=== PATIENT | male | born 1990 | race Caucasian/White ===

== ENCOUNTER 2020-05-28 15:16 | Emergency (ER) | payer MEDICAID, SELFPAY ==
[2020-05-28 15:16] VITALS: BP 137/83; PULSE 94; RESP 16; TEMP 36.1; O2SAT 98
[2020-05-28 15:17] VITALS: BP 137/83; PULSE 94; RESP 16; TEMP 36.1; O2SAT 98; BMI 22.8
--- NOTE | 2020-05-28 15:27 | ED.VIS.GEN ---
History of Present Illness Chief Complaint: General Illness Informant: Patient Onset: Days Context: Gradual Onset Timing: Continuous Current Severity: Moderate Maximum Severity: Moderate Narrative: The patient is a 29-year-old male the presents to the emergency department multiple symptoms. Patient was recently hospitalized at [facility] due to psychiatric illness. While there, he was started on Trileptal. He states has been on it for 4 days. He states he felt nauseated and dizzy with taking it. Today, he began to have cough, nasal congestion, and some mild shortness of breath. He states he did have a negative Covid test 5 days ago. He does not think he had fever. He does admit to some chills. He states he is also been nauseated. He is never been on this medication before. He denies thoughts of self-harm or harming others. Prior similar symptoms: No Recent Illness/Hospitalization: Yes Past Medical History - Allergies and Home Meds Allergies/Adverse Reactions: Allergies amoxicillin [Amoxicillin] Allergy (Unknown, Verified 06/03/14 18:44) Unknown Penicillins Allergy (Unknown, Verified 06/03/14 18:44) Unknown haloperidol [From Haldol] Allergy (Verified 05/28/20 15:20) NEEDS FOLLOW-UP Latex, Natural Rubber Allergy (Verified 05/28/20 15:20) Rash Primary Care Physician: [facility] [GROUP OF PHYSICIANS] - Prior records reviewed: Yes Past Medical History: - - Bipolar disorder Surgical History: noncontributory Smoking Status: Current every day smoker - Family History Maternal Family History: Reports: No pertinent history Review of Systems General: Reports: Malaise. Denies: Chills, Fever, Sweats Eyes: Denies: Visual changes - bilaterally, Diplopia ENT: Denies: Rhinorrhea, Sore throat Cardiovascular: Denies: Chest pain, Palpitations Respiratory: Reports: Cough. Denies: Dyspnea, Dyspnea on exertion Gastrointestinal: Reports: Nausea. Denies: Abdominal pain, Vomiting, Diarrhea, Melena, Hematochezia Genitourinary: Denies: Dysuria, Hematuria, Frequency Musculoskeletal: Reports: Arthralgias. Denies: Back pain, Extremity Pain Skin: Denies: Rash, Wounds Neurological: Denies: Headache, Weakness, Numbness Physical Exam Vital Signs/Narrative: Vital Signs Temp Pulse Resp BP Pulse Ox 05/28/20 15:17 96.9 F L 94 16 137/83 H 98 05/28/20 15:16 96.9 F L 94 16 137/83 H 98 Inital Vital Signs reviewed: Yes General: Well nourished, Well developed, No Acute Distress Head: Normocephalic, Atraumatic Eyes: Perrl, EOMI ENT: Moist mucous membranes, No rhinorrhea Neck: Supple, Nontender Cardiovascular: Regular rate, Regular rhythm, No murmurs Respiratory: No distress, CTA bilaterally, Chest nontender Abdomen: Soft, Nontender, Nondistended, Normal bowel sounds Back: Nontender, Normal Inspection Extremities: Nontender, No edema Skin: Normal color, No rash Neurological: Alert, Oriented x3, Cranial nerves II-XII grossly intact, Normal Strength, Normal Sensation Psychological: Normal affect, Normal Mood Diagnostic/Tx/Re-eval Laboratory Last Values WBC 16.5 K/mm3 (4.4-11.0) H 05/28/20 15:49 RBC 5.59 M/mm3 (4.6-6.2) 05/28/20 15:49 Hgb 16.3 g/dL (13.0-16.5) 05/28/20 15:49 Hct 49.1 % (40-54) 05/28/20 15:49 MCV 87.8 fL (80-94) 05/28/20 15:49 MCH 29.2 pg (27.0-32.0) 05/28/20 15:49 MCHC 33.2 g/dL (32-36) 05/28/20 15:49 RDW Std Deviation 40.9 fl (35.1-43.9) 05/28/20 15:49 RDW Coeff of Bryn 12.7 % (11.6-14.6) 05/28/20 15:49 Plt Count 252 K/mm3 (150-450) 05/28/20 15:49 MPV 9.7 fl (6.2-12.0) 05/28/20 15:49 Immature Gran % (Auto) 0.500 % (0.0-0.9) 05/28/20 15:49 Neut % (Auto) 77.5 % (47-70) H 05/28/20 15:49 Lymph % (Auto) 14.6 % (19-41) L 05/28/20 15:49 Tompkins % (Auto) 6.9 % (0-10) 05/28/20 15:49 Eos % (Auto) 0.2 % (0-5) 05/28/20 15:49 Baso % (Auto) 0.3 % (0-1) 05/28/20 15:49 Absolute Neuts (auto) 12.8 X10^3/uL (2.0-7.7) H 05/28/20 15:49 Absolute Lymphs (auto) 2.41 X10^3/uL (0.83-4.51) 05/28/20 15:49 Nucleated RBC % 0 % (0-5) 05/28/20 15:49 Sodium 141 mmol/L (136-145) 05/28/20 15:49 Potassium 3.9 mmol/L (3.5-5.1) 05/28/20 15:49 Chloride 108 mmol/L (98-107) H 05/28/20 15:49 Carbon Dioxide 29.0 mmol/L (21.0-32.0) 05/28/20 15:49 Anion Gap 4 (5-15) L 05/28/20 15:49 BUN 10 mg/dL (7-18) 05/28/20 15:49 Creatinine 0.78 mg/dL (0.70-1.30) 05/28/20 15:49 Estim Creat Clear Calc 128.10 ml/min 05/28/20 15:49 Est GFR (MDRD) Af Amer 149 mL/min (>60) 05/28/20 15:49 Est GFR (MDRD) Non-Af 123 mL/min (>60) 05/28/20 15:49 BUN/Creatinine Ratio 12.8 RATIO (10-20) 05/28/20 15:49 Glucose 90 mg/dL (74-106) 05/28/20 15:49 Calcium 9.2 mg/dL (8.5-10.1) 05/28/20 15:49 Total Bilirubin 0.60 mg/dL (0.20-1.00) 05/28/20 15:49 AST 15 U/L (15-37) 05/28/20 15:49 ALT 38 U/L (16-61) 05/28/20 15:49 Alkaline Phosphatase 96 U/L (45-117) 05/28/20 15:49 Total Protein 7.8 g/dL (6.4-8.2) 05/28/20 15:49 Albumin 4.2 g/dL (3.2-5.0) 05/28/20 15:49 Globulin 3.6 g/dL (2.2-4.2) 05/28/20 15:49 Albumin/Globulin Ratio 1.2 RATIO (0.9-2.4) 05/28/20 15:49 - Medical Decision Making Patient presents with dizziness, lightheadedness, cough, and sore throat. He does have some mild erythema of the tonsillar pillars without exudate. His uvula is midline. I did obtain Covid given his recent hospitalization. This was negative. Metabolic work-up does show leukocytosis but otherwise unremarkable. The patient states he was exposed to someone with strep. I will cover him with azithromycin given drug allergies. His Trileptal level is a send out and he is only been on it for 4 days. I do not feel that he has toxicity, but likely is intolerant to the side effects. At this point, I do for the safe thing would be to have him stop the medication until he follows up with psychiatrist. The patient be discharged home. Impression 1. Adverse med reaction ED Disposition - Plan for ED Patient: Disposition: Home or Assisted Living Instructions: ED Drug Reaction, Other, ED Pharyngitis, Strep (Presumed) Prescriptions: Azithromycin [Zithromax Z-Richard] 250 mg PO UD #1 box Prescription Printed Referrals: [facility] [GROUP OF PHYSICIANS] -
--- NOTE | 2020-05-28 15:30 | RAD_ITS ---
STUDY: X-RAY CHEST REASON FOR EXAM: Male, 29 years old. PT STARTED TRILIPTAL AND C/O DIZZINESS, WEAKNESS, H/A, NO APPETITE, COUGH TECHNIQUE: Single AP portable view of the chest. COMPARISON: 03/09/2012 FINDINGS: The lungs are clear and expanded. There is no demonstrated pleural abnormality. Normal size heart. Normal mediastinum and inez. Normal visualized pulmonary arteries. Normal visualized aortic arch and descending thoracic aorta. Normal visualized thoracic spine. Normal visualized ribs, clavicles, and shoulders. There is no demonstrated abnormality of the visualized soft tissue structures of the upper abdomen. RAD/Chest 1 View (Portable) IMPRESSION: Normal x-ray examination of the chest. Electronically Signed: Yohan Canchola MD at 15:52 EST Tel , Service support ,
[2020-05-28] MEDS: Ondansetron 4 MG/2 ML Vial IV (15:46)
[2020-05-28] MEDS: 0.9% Normal Saline 1,000 ML 1000 ML IV (15:46)
[2020-05-28 15:59] LABS: Absolute Lymphocyte Count 2.41 X10^3/uL (0.83-4.51); Absolute Neutrophil Count 12.8 X10^3/uL (2.0-7.7); Basophil# 0.05 X10^3/uL; Basophil% 0.3 % (0-1); Eosinophil# 0.03 X10^3/uL; Eosinophils% 0.2 % (0-5); Hematocrit 49.1 % (40-54); Hemoglobin 16.3 g/dL (13.0-16.5); Lymphocyte # 2.41 X10^3/ul (4.0); Lymphocyte % 14.6 % (19-41); Mean Corp Hgb Conc 33.2 g/dL (32-36); Mean Corpuscular Hgb 29.2 pg (27.0-32.0); Mean Corpuscular Volume 87.8 fL (80-94); Mean Platelet Vol. 9.7 fl (6.2-12.0); Monocyte# 1.14 X10^3/uL; Monocyte% 6.9 % (0-10); NRBC Flagged by Analyzer 0 % (0-5); Neutrophil # 12.75 X10^3/uL (2.7-7.7); Neutrophil % 77.5 % (47-70); Platelet Count 252 K/mm3 (150-450); RBC Distribution Width CV 12.7 % (11.6-14.6); RBC Distribution Width SD 40.9 fl (35.1-43.9); Red Blood Count 5.59 M/mm3 (4.6-6.2); White Blood Count 16.5 K/mm3 (4.4-11.0)
[2020-05-28 16:33] LABS: ALB/GLOB Ratio 1.2 RATIO (0.9-2.4); AST(SGOT) 15 U/L (15-37); Alanine Aminotransfer ALT/SGPT 38 U/L (16-61); Albumin, Serum 4.2 g/dL (3.2-5.0); Alkaline Phosphatase 96 U/L (45-117); Anion Gap 4 (5-15); BUN 10 mg/dL (7-18); BUN/Creat Ratio 12.8 RATIO (10-20); Calcium,Total 9.2 mg/dL (8.5-10.1); Chloride 108 mmol/L (98-107); Creatinine, Serum 0.78 mg/dL (0.70-1.30); EST Glomerular Filtration Rate 123 mL/min (>60); Est Glom Filt Rate - Afr Amer 149 mL/min (>60); Globulin 3.6 g/dL (2.2-4.2); Glucose 90 mg/dL (74-106); Potassium 3.9 mmol/L (3.5-5.1); Protein, Total 7.8 g/dL (6.4-8.2); Sodium Level 141 mmol/L (136-145)
[2020-06-01 13:16] LABS: Trileptal-Oxcarbazepine 6 ug/mL (10-35)
== END 2020-05-28 17:25 | disposition home or self-care (01) ==
LOC: ED 16:08
PROVIDERS: Emergency Provider Emergency Medicine
DX: R42 Dizziness and giddiness (principal); T42.1X5A Adverse effect of iminostilbenes, initial encounter; Y92.9 Unspecified place or not applicable; J02.9 Acute pharyngitis, unspecified; R05 Cough; F31.9 Bipolar disorder, unspecified; F17.200 Nicotine dependence, unspecified, uncomplicated
CPT/HCPCS: 71045; 80053; 82542; 85025; 87426; 96361; 96374; 99282; J7030; A4216; J2405